=== PATIENT | male | born 1995 | race Caucasian/White ===

== ENCOUNTER 2018-06-03 23:43 | Emergency (ER) | payer BC ==
--- NOTE | 2018-06-04 00:08 | ED Physician Documentation ---
General Adult - HISTORIAN Historian: patient - HPI Stated Complaint: Scalp Laceration Chief Complaint: Laceration/Recheck/Suture Additional Information: Patient presents to ED with laceration to scalp after getting hit with a log. Patient denies loss of consciousness. He is not on blood thinners. Onset: minutes (45) Timing: still present Severity: mild - ROS CONST: no problems EYES/ENT: none CVS/RESP: none GI/: none MS/SKIN/LYMPH: none NEURO/PSYCH: denies: headache - PAST HX Past History: none Other History: none Surgeries/Procedures: none Allergies/Adverse Reactions: Allergies Allergy/AdvReac Type Severity Reaction Status Date / Time No Known Drug Allergies Allergy Verified 06/03/18 23:57 Home Medications: Ambulatory Orders Medication Instructions Recorded NK 10/04/15 - SOCIAL HX Smoking History: non-smoker Alcohol Use: none Drug Use: none - FAMILY HX Family History: No - VITAL SIGNS Vital Signs: Vital Signs Temp Pulse Resp BP Pulse Ox 98.2 F 91 H 18 137/88 97 06/03/18 23:52 06/03/18 23:52 06/03/18 23:52 06/03/18 23:52 06/03/18 23:52 - REVIEWED ASSESSMENTS Nursing Assessment Reviewed: Yes Vitals Reviewed: Yes Procedures Wound Location: head Wound Length: 2.4 cm Wound's Depth, Shape: superficial Wound Explored: clean Betadine Prep?: No Wound Debrided: minimal Wound Repaired With: mariano Number of Sutures: 1 Layer Closure?: No Sterile Dressing Applied?: Yes Splint Applied?: No Sling Applied?: No General Adult Physical Exam - PHYSICAL EXAM GENERAL APPEARANCE: no distress EENT: CLAUDE NECK: supple RESPIRATORY: no resp distress, chest non-tender, breath sounds normal CVS: reg rate & rhythm, heart sounds normal ABDOMEN: soft SKIN: warm/dry EXTREMITIES: non-tender NEURO: oriented X3 Discharge Clincal Impression: Laceration Referrals: Primary Doctor,No [Primary Care Provider] - 2 Days Additional Instructions: 1. Tylenol and/or Ibuprofen as needed for pain 2. Keep wound clean and dry 3. Wash area with warm soapy water daily. Pat dry 4. Follow up with PCP within 7-10 days for staple removal 5. Return to the ER for new or worsening symptoms Condition: Stable Disposition: 01 HOME, SELF-CARE Decision to Admit: NO Date of Decison to Admit: 06/04/18 Decision Time: 00:20
[2018-06-04 00:32] VITALS: BP 131/79
== END 2018-06-04 00:30 | disposition home or self-care (01) ==
LOC: ED 23:43
DX: S01.01XA Laceration without foreign body of scalp, initial encounter (principal); W22.8XXA Striking against or struck by other objects, initial encounter; Y93.9 Activity, unspecified; Y92.9 Unspecified place or not applicable
CPT/HCPCS: 12001; 99282